=== PATIENT | female | born 1975 | race Two or more races ===

== ENCOUNTER 2024-08-22 16:30 | Emergency (ER) | payer OTHER ==
[~2024-08-22] VITALS: Ht 170.2 cm; Wt 89.4 kg
[2024-08-22] MEDS ORDERED: KETOROLAC TROMETHAMINE 30 MG VIAL ONE (17:54)
[2024-08-22] MEDS ORDERED: KETOROLAC TROMETHAMINE 30 MG VIAL IV ONE (18:00)
[2024-08-22 18:15] LABS: HEMATOCRIT 39.3 % (36.0-45.00); HEMOGLOBIN 13.6 g/dL (12.0-15.00); MEAN CELL VOLUME 86.5 fL (80.00-100.00); MEAN CORPUSCULAR HGB CONC 34.7 g/dl (32.0-36.0); PLATELET COUNT 272 K/uL (150-450); RED BLOOD COUNT 4.54 M/uL (4.00-6.00); RED CELL DISTRIBUTION WIDTH 14.5 % (11.5-14.5)
[2024-08-22 18:55] LABS: PH,URINE 5.5 (5.0-8.0); URINE APPEARANCE Cloudy; URINE BILIRRUBIN Negative (NEGATIVE); URINE BLOOD Negative; URINE COLOR Yellow; URINE GLUCOSE Negative (NEGATIVE); URINE KETONE Negative (NEGATIVE); URINE LEUKOCYTE Negative; URINE NITRATE Negative; URINE PROTEIN Negative (NEGATIVE); URINE UROBILINOGEN 0.2 E.U./dl
[2024-08-22 18:56] LABS: URINE BACTERIA 52.6 uL (0.0-1933); URINE EPITHELIAL CELLS 2.6 uL (0.0-38.8); URINE RBC 5.5 uL (0.0-20.8)
[2024-08-22 19:08] LABS: URINE WBC 0.7 uL (0.0-23.2)
== END 2024-08-22 20:31 | disposition home or self-care (01) ==
LOC: ER 16:33
PROVIDERS: Emergency Medicine
DX: R10.9 Unspecified abdominal pain (principal)